=== PATIENT | female | born 1965 | race Caucasian/White ===

== ENCOUNTER 2022-04-24 11:26 | Emergency (ER) | payer SELFPAY ==
[2022-04-24] MEDS ORDERED: Ketorolac Tromethamine 30 MG/ML VIAL ONE (13:16)
[2022-04-24] MEDS ORDERED: Acetaminophen 500 MG TAB ONE (13:16)
== END 2022-04-24 13:25 | disposition home or self-care (01) ==
LOC: ERS 11:26
DX: J06.9 Acute upper respiratory infection, unspecified (principal); R91.1 Solitary pulmonary nodule
CPT/HCPCS: 71045; 96372; J1885